=== PATIENT | male | born 1965 | race Caucasian/White ===

== ENCOUNTER 2025-02-19 15:18 | Emergency (ER) | payer BC, SELFPAY ==
[2025-02-19 15:29] VITALS: BP 179/99
[2025-02-19 16:06] LABS: Hematocrit 41.4 % (39.0-52.0); Hemoglobin 13.9 g/dL (13.0-18.0); Mean Corp Hgb Conc. 33.6 g/dL (33.0-37.0); Mean Corpuscular Volume 90.2 fL (80.0-94.0); Nucleated Red Blood Cells % 0 % (-); Platelet Count 198 10^3/uL (130-400); Red Cell Dist. Width 13.2 % (11.5-14.5)
[2025-02-19 16:20] LABS: ALT (SGPT) 23 U/L (0-50); AST (SGOT) 22 U/L (17-59); Albumin 4.7 g/dl (3.5-5.0); Alkaline Phosphatase 46 U/L (38-126); Blood Urea Nitrogen 11 mg/dl (9-20); Calcium 10.4 mg/dl (8.4-10.2); Carbon Dioxide 26 mmol/L (22-30); Chloride 111 mmol/L (98-107); Glucose 97 mg/dl (70-99); Lipase 108 U/L (23-300); Potassium 4.4 mmol/L (3.5-5.1); Sodium 141 mmol/L (135-145); Total Protein 7.9 g/dl (6.3-8.2); eGFR > 60.00
[2025-02-19 19:20] VITALS: BP 169/93
--- NOTE | 2025-02-19 19:48 | ED.GENMED ---
History of Present Illness
<Marixa Doss PA-C - Last Filed: 02/20/25 20:00>
General
Chief Complaint: Abdominal Symptoms
Source: patient
Exam Limitations: none
Time Seen by Provider: 02/19/25 18:40
Nursing documentation reviewed up to this point in time: agreed with
History of Present Illness
History of Present Illness:
see MDM
Past History
<Marixa Doss PA-C - Last Filed: 02/20/25 20:00>
Past History
ED Past Medical History: HTN
Social History
Tobacco: Non-smoker
Alcohol: Occasional
Drug: None
Review of Systems
<Marixa Doss PA-C - Last Filed: 02/20/25 20:00>
Review of Systems
Allergies reviewed?: Yes
All Other Systems: Not applicable
Phy Exam
<Marixa Doss PA-C - Last Filed: 02/20/25 20:00>
Physical Exam
Physical Exam:
see mdm
Course
<SCOOBY Vang Last Filed: 02/20/25 20:00>
Orders/Labs/Results
Orders:
Orders
02/19/25 15:55
Complete Blood Count/With Diff Urgent
Comprehensive Metabolic Panel Urgent
Lactic Acid Urgent
Lipase Urgent
02/19/25 19:24
CT Abd/Pel (IV only)-[facility] only Urgent
Comment:
Reason For Exam: LLQ pain, bloody stool
0.9% Sodium Chloride 1000 ml [Nss] 1,000 ml IV BOLUS
02/19/25 19:33
Lactic Acid Urgent
Abnormal Lab Results
02/19/25
15:55
RBC 4.59 L 10^6/uL
(4.70-6.10)
MPV 10.6 H fL
(7.4-10.4)
Chloride 111 H mmol/L
(98-107)
Calcium 10.4 H mg/dl
(8.4-10.2)
02/19/25 15:55
02/19/25 15:55
Vital Signs
Initial and Last Documented VS:
Initial Vital Signs
Temp Pulse Resp BP Pulse Ox
36.8 C 64 20 179/99 98
02/19/25 15:29 02/19/25 15:29 02/19/25 15:29 02/19/25 15:29 02/19/25 15:29
Last Documented Vital Signs
Temp Pulse Resp BP Pulse Ox
36.8 C 54 18 175/87 97
02/19/25 15:29 02/19/25 20:55 02/19/25 20:55 02/19/25 20:55 02/19/25 20:55
<Pedro Shore PA-C - Last Filed: 02/19/25 21:59>
Orders/Labs/Results
Orders:
Orders
02/19/25 15:55
Complete Blood Count/With Diff Urgent
Comprehensive Metabolic Panel Urgent
Lactic Acid Urgent
Lipase Urgent
02/19/25 19:24
CT Abd/Pel (IV only)-[facility] only Urgent
Comment:
Reason For Exam: LLQ pain, bloody stool
0.9% Sodium Chloride 1000 ml [Nss] 1,000 ml IV BOLUS
02/19/25 19:33
Lactic Acid Urgent
Abnormal Lab Results
02/19/25
15:55
RBC 4.59 L 10^6/uL
(4.70-6.10)
MPV 10.6 H fL
(7.4-10.4)
Chloride 111 H mmol/L
(98-107)
Calcium 10.4 H mg/dl
(8.4-10.2)
02/19/25 15:55
02/19/25 15:55
Vital Signs
Initial and Last Documented VS:
Initial Vital Signs
Temp Pulse Resp BP Pulse Ox
36.8 C 64 20 179/99 98
02/19/25 15:29 02/19/25 15:29 02/19/25 15:29 02/19/25 15:29 02/19/25 15:29
Last Documented Vital Signs
Temp Pulse Resp BP Pulse Ox
36.8 C 54 18 175/87 97
02/19/25 15:29 02/19/25 20:55 02/19/25 20:55 02/19/25 20:55 02/19/25 20:55
<Marixa Doss PA-C - Last Filed: 02/20/25 20:00>
MDM/Problems Addressed
Differential Diagnosis Includes:
see MDM
MDM/Problems Addressed:
Note:
CHIEF COMPLAINT(S)
- Diarrhea with mucus and blood
HISTORY OF PRESENT ILLNESS
The patient is a male with a history of hypertension presenting with diarrhea and rectal bleeding. The symptoms began yesterday, initially presenting as typical bowel movements which progressed to diarrhea described vividly by the patient as �the
torres opened up.� This episode occurred three to four times throughout the day and into the night at approximately 2:00 AM, when the patient noticed the presence of mucus and bright red blood, which he described as red.
The frequency continued with three more episodes the following morning. The stools were still mostly liquid with mucus and blood. The patient denies any history of vomiting since 1994 and reports no abdominal pain or recent rectal insertions. He
mentions a past colonoscopy revealing diverticulosis, hemorrhoids, and a polyp.
CHRONIC MEDICAL CONDITIONS SIGNIFICANTLY AFFECTING CARE
- Hypertension
- Hemorrhoids
- Diverticulosis
PHYSICAL EXAM
- Rectal examination performed: No significant external hemorrhoids observed, and no blood present in rectal vault.
GENERAL: Alert , in no apparent distress
EYE: pupils equal and reactive
NECK: Supple
ENT: o/p clr, mmm.
CARDIAC: Regular rate and rhythm .
LUNGS: Clear breath sounds bilaterally, no acute respiratory distress, no wheezes/rales/rhonchi
ABDOMEN: Soft, mild LLQ tenderness, no r/g, no cvat, normal bowel sounds
NEUROLOGICAL: Alert and oriented, no focal neuro deficits
SKIN: Warm and dry, skin intact.
MUSCULOSKELETAL: No edema, well perfused. neg pako's sign
PSYCH: Normal and appropriate interaction.
- Nursing notes reviewed and vital signs reviewed.
PLAN
- Perform a computed tomography (CT) scan of the abdomen to evaluate for diverticulitis or other abdominal pathology.
- Obtain further blood work, specifically checking lactic acid levels to assess for adequate abdominal circulation.
- Consider hospital admission if CT findings suggest diverticulitis with significant bleeding risk, otherwise discharge if findings are consistent with hemorrhoids and diarrhea.
- Arrange follow-up with Gastroenterology as needed.
DIFFERENTIAL DIAGNOSIS
The Differential Diagnosis includes, in no particular order and is not limited to:
1. Diverticulitis with bleeding
2. Hemorrhoidal bleeding
3. Infectious colitis
4. Inflammatory bowel disease such as ulcerative colitis
5. Colorectal cancer
6. Ischemic colitis
7. Gastroenteritis
8. Peptic ulcer disease with lower gastrointestinal manifestation
9. Colon polyps
10. Anal fissure with secondary bleeding
signed out pending CT and lactic
<Marixa Doss PA-C - Last Filed: 02/20/25 20:00>
*Pulse Oximetry
SaO2: 100
Oxygen Mode of Delivery: Room air
<Pedro Shore PA-C - Last Filed: 02/19/25 21:59>
*Pulse Oximetry
Patient hypoxic: no
*Critical Care Note
Total Time (30-74mins, 75-104mins- exclusive of procedures): Not Applicable
<Pedro Shore PA-C - Last Filed: 02/19/25 21:59>
Update Note
Update Note:
Scan findings consistent with acute colitis. Patient is stable and has had no further bloody bowel movements in the ED, stable for discharge to home. Will treat with a course of Augmentin
ED Attending Note
<Marixa Doss PA-C - Last Filed: 02/20/25 20:00>
-
Portions of this chart may have been created with voice recognition software.� Occasional wrong word or��sound alike� substitutions may have occurred due to the inherent limitations of voice recognition software.
Discharge Plan
Departure
Patient Disposition: Home (Routine Discharge)
Date of Disposition: 02/19/25
Time of Disposition: 20:43
Patient with high blood pressure during this ER visit?: No
Discharge Problem:
Colitis
Instructions: Colitis - Discharge instructions
Prescriptions:
New
amoxicillin-pot clavulanate 875-125 mg tablet
1 tab PO BID 7 Days Qty: 14 0RF
Referrals:
Dustin Sheppard MD [Family Provider, [facility]]
Interventions
Interventions:
*Risk Screen - Suicide Last Done: 02/19/25 19:48
*General Assessment Last Done: 02/19/25 15:29
*Neglect/Abuse Screening Last Done: 02/19/25 19:48
*ED- Fall Risk Assessment Last Done: 02/19/25 19:48
*ED COVID-19 Vaccine History Last Done: 02/19/25 19:48
*Nursing Disposition Last Done: 02/19/25 20:55
FB-Uxfrkl-Aflwipgxqj Assessment Last Done: 02/19/25 19:48
Discharge Date and Time
Discharge Date/Time: 02/19/25 20:56
Print Language: ROMANIAN
[2025-02-19] MEDS: NSS 1000 IV (19:49)
[2025-02-19 20:53] VITALS: BP 175/87
[2025-02-19 20:55] VITALS: BP 175/87
== END 2025-02-19 20:56 | disposition home or self-care (01) ==
LOC: EMR 15:18
PROVIDERS: Emergency Medicine; Physician Assistant; EMERGENCY PHYSICIAN Emergency Medicine; FAMILY PHYSICIAN Surgery
DX: K52.9 Noninfective gastroenteritis and colitis, unspecified (principal); K57.30 Diverticulosis of large intestine without perforation or abscess without bleeding; K64.9 Unspecified hemorrhoids; K63.5 Polyp of colon; I10 Essential (primary) hypertension; Z88.5 Allergy status to narcotic agent
CPT/HCPCS: 99284; 96360; 74177; 80053; 83605; 83690; 85025; Q9967

== ENCOUNTER 2025-05-16 06:17 | Day surgery (SDC) | payer BC, SELFPAY | END 2025-05-16 10:27 | disposition home or self-care (01) | LOC: GI 06:17 | PROVIDERS: ATTENDING PHYSICIAN Surgery | DX: Z12.11 Encounter for screening for malignant neoplasm of colon (principal); K62.5 Hemorrhage of anus and rectum; K64.9 Unspecified hemorrhoids; K57.30 Diverticulosis of large intestine without perforation or abscess without bleeding; Z86.0100 Personal history of colon polyps, unspecified | CPT/HCPCS: 45380; 88305 ==

== ENCOUNTER 2025-05-17 06:22 | Day surgery (SDC) | payer BC, SELFPAY | END 2025-05-17 14:41 | disposition home or self-care (01) | LOC: GI 06:22 | PROVIDERS: ATTENDING PHYSICIAN Internal Medicine Gastroenterology | DX: D62 Acute posthemorrhagic anemia (principal); R12 Heartburn; K22.11 Ulcer of esophagus with bleeding; K44.9 Diaphragmatic hernia without obstruction or gangrene; K92.1 Melena | CPT/HCPCS: 43239; 88305; 88342 ==

== ENCOUNTER 2025-07-18 06:26 | Day surgery (SDC) | payer BC, SELFPAY ==
[2025-07-18 09:00] VITALS: BMI 31.0
[2025-07-18 09:01] VITALS: BP 161/91; BMI 31.0
[2025-07-18 11:37] VITALS: BP 131/86
[2025-07-18 11:45] VITALS: BP 135/87
[2025-07-18 12:00] VITALS: BP 136/92
== END 2025-07-18 12:25 | disposition home or self-care (01) ==
LOC: SDS 06:26
PROVIDERS: ATTENDING PHYSICIAN Internal Medicine Gastroenterology
DX: K20.90 Esophagitis, unspecified without bleeding (principal); K22.89 Other specified disease of esophagus; K44.9 Diaphragmatic hernia without obstruction or gangrene; K31.89 Other diseases of stomach and duodenum; K86.2 Cyst of pancreas; R93.5 Abnormal findings on diagnostic imaging of other abdominal regions, including retroperitoneum
CPT/HCPCS: 43242; 43239; 88305